=== PATIENT | female | born 1995 | race Caucasian/White ===

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

== ENCOUNTER 2017-01-25 14:29 | Emergency (ER) | payer MEDICAID, OTHER ==
[2017-01-25 15:10] VITALS: BP 126/60
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
== END 2017-01-25 16:13 | disposition home or self-care (01) ==
LOC: MW.ED 14:29
DX: O99.89 Other specified diseases and conditions complicating pregnancy, childbirth and the puerperium (principal); R10.9 Unspecified abdominal pain; Z79.899 Other long term (current) drug therapy; Z3A.17 17 weeks gestation of pregnancy; V49.60XA Unspecified car occupant injured in collision with unspecified motor vehicles in traffic accident, initial encounter; Y92.410 Unspecified street and highway as the place of occurrence of the external cause
CPT/HCPCS: 81001; 99283; 99284

== ENCOUNTER 2017-06-25 20:20 | Inpatient (IN) | payer MEDICAID ==
[2017-06-25] MEDS ORDERED: Sodium Chloride 0.9% 2.5 ML Syringe FLUSH PRN (21:03)
[2017-06-25] MEDS ORDERED: Sodium Chloride 0.9% 10 ML Syringe FLUSH PRN (21:03)
[2017-06-25] MEDS ORDERED: Butorphanol 1 MG/ML SDV IVPUSH ONE (21:05)
[2017-06-25] MEDS ORDERED: Nalbuphine 10 MG/1 ML Vial IVPUSH PRN (22:03)
[2017-06-25] MEDS ORDERED: Methylergonovine 0.2 MG/1 ML Amp IM PRN (22:03)
[2017-06-25] MEDS ORDERED: Tranexamic Acid 1,000 MG in Sodium Chloride 0.9% 100 ML IV PRN (22:03)
[2017-06-25] MEDS ORDERED: Misoprostol 200 MCG Tab PO PRN (22:03)
[2017-06-25] MEDS ORDERED: Lidocaine 1% 50 ML MDV INJECT PRN (22:03)
[2017-06-25] MEDS ORDERED: Carboprost Tromethamine 250 MCG/1 ML Amp IM PRN (22:03)
[2017-06-25] MEDS ORDERED: Butorphanol 1 MG/ML SDV IVPUSH PRN (22:03)
[2017-06-25] MEDS ORDERED: Water For Irrigation,Sterile 1,000 ML Container IRR PRN (22:03)
[2017-06-25] MEDS ORDERED: Ampicillin 2 GM in Sodium Chloride 0.9% 100 ML IV ONE (22:09)
[2017-06-25] MEDS ORDERED: Oxytocin/0.9 % Sodium Chloride 30 UNIT/500 ML BAG IV SCH (22:15)
[2017-06-25] MEDS: Lactated Ringers 1,000 ML IV SCH (22:34)
--- NOTE | 2017-06-26 00:02 | PCM.PREANE ---
Preanesthetic Assessment - Anesthesia/Transfusion/Family Hx Anesthesia History: No Prior Anesthesia Transfusion History: No Prior Transfusion(s) - Review of Systems General: No Symptoms Pulmonary: No Symptoms Cardiovascular: No Symptoms Gastrointestinal: No Symptoms Neurological: No Symptoms Other: Reports: None - Physical Assessment Height: 5 ft 2 in Weight: 69.853 kg ASA Class: 2 Mental Status: Alert & Oriented x3 Dentition: Reports: Normal Dentition Thyro-Mental Finger Breadths: 3 Mouth Opening Finger Breadths: 3 ROM/Head Extension: Full Lungs: Clear to Auscultation, Normal Respiratory Effort Cardiovascular: Regular Rate, Regular Rhythm - Lab Values: Laboratory Last Values WBC 13.84 K/uL (4.0-11.0) H 06/25/17 22:20 RBC 3.66 M/uL (4.30-5.90) L 06/25/17 22:20 Hgb 11.2 g/dL (12.0-16.0) L 06/25/17 22:20 Hct 32.5 % (36.0-46.0) L 06/25/17 22:20 MCV 88.8 fL (80.0-98.0) 06/25/17 22:20 MCH 30.6 pg (27.0-32.0) 06/25/17 22:20 MCHC 34.5 g/dL (31.0-37.0) 06/25/17 22:20 RDW Std Deviation 42.2 fl (28.0-62.0) 06/25/17 22:20 RDW Coeff of Sharron 13 % (11.0-15.0) 06/25/17 22:20 Plt Count 289 K/uL (150-400) 06/25/17 22:20 MPV 9.60 fL (7.40-12.00) 06/25/17 22:20 Nucleated RBC % 0.0 /100WBC 06/25/17 22:20 Nucleated RBCs # 0 K/uL 06/25/17 22:20 Blood Type O POSITIVE 06/25/17 22:20 Antibody Screen NEGATIVE 06/25/17 22:20 - Allergies Allergies/Adverse Reactions: Allergies Allergy/AdvReac Type Severity Reaction Status Date / Time No Known Allergies Allergy Verified 01/25/17 15:10 - Acknowledgements Anesthesia Type Planned: Epidural Pt an Appropriate Candidate for the Planned Anesthesia: Yes Alternatives and Risks of Anesthesia Discussed w Pt/Guardian: Yes Pt/Guardian Understands and Agrees with Anesthesia Plan: Yes PreAnesthesia Questionnaire - Past Health History Medical/Surgical History: Denies Medical/Surgical History HEENT History: Reports: None Cardiovascular History: Reports: None Respiratory History: Reports: None Gastrointestinal History: Reports: GERD Other Gastrointestinal History: colitis Genitourinary History: Reports: None 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: : 1 Para: 0 LMP (Approximate): Musculoskeletal History: Reports: None Neurological History: Reports: None Psychiatric History: Reports: None Endocrine/Metabolic History: Reports: None Hematologic History: Reports: None Immunologic History: Reports: None Oncologic (Cancer) History: Reports: None Dermatologic History: Reports: None - Infectious Disease History Infectious Disease History: Reports: None - Past Surgical History Head Surgeries/Procedures: Reports: None - SUBSTANCE USE Smoking Status *Q: Never Smoker Tobacco Use Within Last Twelve Months: Cigarettes Second Hand Smoke Exposure: No Recreational Drug Use History: No - HOME MEDS Home Medications: Home Meds Pediatric Multivit Comb #25/Fa [Flintstones Multivit Chew Tab] 1 tab PO DAILY [History] - CURRENT (IN HOUSE) MEDS Current Meds: Current Medications Butorphanol Tartrate (Stadol) 1 mg IVPUSH Q1H PRN PRN Reason: Pain Last Admin: 06/25/17 23:02 Dose: 1 mg Carboprost Tromethamine (Hemabate Ds) 250 mcg IM ASDIRECTED PRN PRN Reason: Post Hemorrhage Tranexamic Acid 1,000 mg/ (Sodium Chloride) 110 mls @ 660 mls/hr IV ONETIME PRN PRN Reason: Bleeding Lactated Ringer's (Ringers, Lactated) 1,000 mls @ 150 mls/hr IV ASDIRECTED GALE Last Admin: 06/25/17 22:34 Dose: 150 mls/hr Oxytocin/Sodium Chloride (Oxytocin 30 Unit/500 Ml-Ns) 30 unit in 500 mls @ 250 mls/hr IV TITRATE GALE Ampicillin Sodium 1 gm/ Sodium (Chloride) 50 mls @ 100 mls/hr IV Q4H GALE Lidocaine HCl (Xylocaine 1%) 50 ml INJECT .ONCE PRN PRN Reason: Laceration repair Methylergonovine Maleate (Methergine) 0.2 mg IM ASDIRECTED PRN PRN Reason: Post Hemorrhage Misoprostol (Cytotec) 200 mcg PO .ONCE PRN PRN Reason: Post Hemorrhage Nalbuphine HCl (Nubain) 10 mg IVPUSH Q1H PRN PRN Reason: Pain (severe 7-10) Sodium Chloride (Saline Flush) 10 ml FLUSH ASDIRECTED PRN PRN Reason: Keep Vein Open Sodium Chloride (Saline Flush) 2.5 ml FLUSH ASDIRECTED PRN PRN Reason: Keep Vein Open Sterile Water (Sterile Water For Irrigation) 1,000 ml IRR ASDIRECTED PRN PRN Reason: delivery Discontinued Medications Butorphanol Tartrate (Stadol) 1 mg IVPUSH ONETIME ONE Stop: 06/25/17 21:06 Last Admin: 06/25/17 21:29 Dose: 1 mg Ampicillin Sodium 2 gm/ Sodium (Chloride) 100 mls @ 200 mls/hr IV ONETIME ONE Stop: 06/25/17 22:38 Last Admin: 06/25/17 22:34 Dose: 200 mls/hr
[2017-06-26] MEDS: Lactated Ringers 1,000 ML IV SCH ×2 (00:11→06:44)
[2017-06-26] MEDS: Ampicillin 1 GM in Sodium Chloride 0.9% 50 ML IV SCH ×3 (02:16→10:02)
[2017-06-26] MEDS ORDERED: Terbutaline 1 MG/ML SDV SUBCUT PRN (05:59)
[2017-06-26] MEDS ORDERED: Oxytocin/0.9 % Sodium Chloride 30 UNIT/500 ML BAG IV SCH (06:00)
[2017-06-26] MEDS ORDERED: Acetaminophen 500 MG Tab PO PRN (12:55)
[2017-06-26] MEDS ORDERED: Ibuprofen 800 MG Tab PO PRN (12:55)
[2017-06-26] MEDS ORDERED: Bisacodyl 10 MG Supp RECTAL PRN (12:55)
[2017-06-26] MEDS ORDERED: Methylergonovine 0.2 MG Tab PO PRN (12:55)
[2017-06-26] MEDS ORDERED: Benzocaine/Menthol 20%-0.5% Spray 78 GM Cannister TOP PRN (12:55)
[2017-06-26] MEDS ORDERED: Witch Hazel Medicated Pads 40/Jar TOP PRN (12:55)
[2017-06-26] MEDS ORDERED: Lanolin 100% Cream 7 GM Tube TOP PRN (12:55)
[2017-06-26] MEDS ORDERED: Docusate Sodium 100 MG Cap PO PRN (12:55)
[2017-06-26] MEDS ORDERED: Ibuprofen 400 MG Tab PO PRN (12:55)
--- NOTE | 2017-06-26 13:43 | OR ---
SURGEON: Noemy Almonte M.D. DATE OF PROCEDURE: 06/26/2017 PREOPERATIVE DIAGNOSES: 38 and 2/7 week intrauterine , active spontaneous labor. POSTOPERATIVE DIAGNOSES: 38 and 2/7 week intrauterine , active spontaneous labor. PROCEDURES: 1. Pitocin augmentation of labor. 2. Term spontaneous vaginal delivery. 3. Repair of right labial laceration. RECORDIST CHIEF: SHARAN Patel. ANESTHESIA: Epidural. ESTIMATED BLOOD LOSS: Less than 200 mL. FINDINGS: Live born male, scores 9 and 9, weighing 3380 g, placenta spontaneous, Schultze intact with 3 vessels. Perineum intact. Right labial laceration repair. COMPLICATIONS: None known. DISPOSITION: Mother and baby are in LDRP in good condition. BRIEF HISTORY: This is a 21-year-old female, she is G1, P0, presents in early active labor. She was evaluated on Labor and Delivery on 06/25/2017. She was dismissed to home in the afternoon. She returned in the middle of the night, now 3 to 4 cm dilated, where she had been fingertip before. She was admitted for Labor management. She did receive an epidural for pain control. She had artificial rupture of membranes and she had a category 1 heart tones, although low baseline heart rate throughout labor. She had slow progress beyond 5 cm; therefore, Pitocin augmentation was performed with a maximum Pitocin of 8 milliunits per minute and she progressed to complete. DESCRIPTION OF PROCEDURE: With the patient in dorsal lithotomy position, the patient pushed over 1 hour time period to a 5+ station, at which time the head was delivered in a right occiput anterior position over the perineum with support with subsequent delivery of the 's shoulders and body without any difficulty. The infant was bulb suctioned by nose and mouth and handed to the mother in the presence of the nurse attending delivery. The was a liveborn male, scores 9 and 9, weighing 3380 g. After the cord had ceased to pulsate, it was doubly clamped and cut. A section of cord was retained for drying cord ABGs as well as routine cord blood sampling. The Pitocin was initiated after delivery of the to assist with delivery of the placenta, which was delivered spontaneously. Schultze intact with 3 vessels. Upon inspection of the pelvis and perineum, there were no periurethral, vaginal sidewall, cervical, rectal, or perineal lacerations. There was a right labial laceration, which was reapproximated using subcuticular suture of 3-0 Polysorb. Final sponge, needle, and instrument count were correct. There were no known complications. Mother and baby remained in LDRP in good condition. FRANCISCA COSBY /[id number] JAXON
[2017-06-26] MEDS: Acetaminophen 500 MG Tab PO PRN (17:33)
[2017-06-26] MEDS: oxyCODONE 5 MG Tab PO PRN ×2 (17:34→20:09)
[2017-06-27] MEDS: oxyCODONE 5 MG Tab PO PRN ×3 (00:42→11:48)
[2017-06-27] MEDS: Acetaminophen 500 MG Tab PO PRN ×2 (00:43→06:32)
--- NOTE | 2017-06-27 07:32 | PCM.PNPP ---
<Araseli Gonzales - Last Filed: 06/27/17 07:26> - General Info Date of Service: 06/27/17 Admission Dx/Problem (Free Text): 38/3 , right labia laceration. Subjective Update: Patient is doing well. Attempting to breastfeed, supplementing with formula. Lochia - WNL. Pain is tolerable, although not well controlled. Has not had food yet. Urinating. No bowel movement, but flatus present. Ambulating. Anticipate discharge today. Functional Status: Reports: Ambulating - Review of Systems General: Denies: Fever, Chills HEENT: Denies: Headaches Pulmonary: Denies: Shortness of Breath, Pleuritic Chest Pain Cardiovascular: Denies: Chest Pain, Palpitations, Lightheadedness Gastrointestinal: Reports: Flatus. Denies: Abdominal Pain - General Info Date of Service: 06/27/17 - Patient Data Vital Signs - Most Recent: Last Vital Signs Temp 37.1 C 06/26/17 19:32 Pulse 116 H 06/26/17 19:32 Resp 16 06/26/17 19:32 BP 109/74 06/26/17 19:32 Pulse Ox 98 06/26/17 19:32 Weight - Most Recent: 154 lb Lab Results - Last 24 Hours: Laboratory Results - last 24 hr 06/26/17 06/27/17 Range/Units 12:22 06:11 Hgb 9.1 L (12.0-16.0) g/dL Hct 27.5 L (36.0-46.0) % Cord ABG pH 7.397 H (7.18-7.38) Cord ABG Base Excess -4 (-10--2) Cord VBG pH 7.386 (7.25-7.45) Cord VBG Base Excess -4 (-10--2) Med Orders - Current: Current Medications Acetaminophen (Tylenol Extra Strength) 500 mg PO Q4H PRN PRN Reason: Pain Last Admin: 06/27/17 06:32 Dose: 500 mg Acetaminophen (Tylenol Extra Strength) 1,000 mg PO Q4H PRN PRN Reason: Pain Benzocaine/Menthol (Dermoplast Pain Relief 20%-0.5% [place]) 78 gm TOP ASDIRECTED PRN PRN Reason: Perineal Comfort Measure Last Admin: 06/26/17 14:26 Dose: 1 canister Bisacodyl (Dulcolax) 10 mg RECTAL .ONCE PRN PRN Reason: Constipation Docusate Sodium (Colace) 100 mg PO BID PRN PRN Reason: Constipation Emollient Ointment (Lansinoh Hpa) 0 gm TOP ASDIRECTED PRN PRN Reason: Sore Nipples Ibuprofen (Motrin) 400 mg PO Q4H PRN PRN Reason: Pain Ibuprofen (Motrin) 800 mg PO Q6H PRN PRN Reason: Pain Methylergonovine Maleate (Methergine) 0.2 mg PO ASDIRECTED PRN PRN Reason: excessive vaginal bleeding Oxycodone HCl (Oxycodone) 5 mg PO Q2H PRN PRN Reason: Pain Last Admin: 06/27/17 06:31 Dose: 5 mg Witch Kassandra (Tucks) 1 pad TOP ASDIRECTED PRN PRN Reason: comfort care Last Admin: 06/26/17 20:11 Dose: 1 pad Discontinued Medications Butorphanol Tartrate (Stadol) 1 mg IVPUSH ONETIME ONE Stop: 06/25/17 21:06 Last Admin: 06/25/17 21:29 Dose: 1 mg Butorphanol Tartrate (Stadol) 1 mg IVPUSH Q1H PRN PRN Reason: Pain Last Admin: 06/25/17 23:02 Dose: 1 mg Carboprost Tromethamine (Hemabate Ds) 250 mcg IM ASDIRECTED PRN PRN Reason: Post Hemorrhage Tranexamic Acid 1,000 mg/ (Sodium Chloride) 110 mls @ 660 mls/hr IV ONETIME PRN PRN Reason: Bleeding Ampicillin Sodium 2 gm/ Sodium (Chloride) 100 mls @ 200 mls/hr IV ONETIME ONE Stop: 06/25/17 22:38 Last Admin: 06/25/17 22:34 Dose: 200 mls/hr Lactated Ringer's (Ringers, Lactated) 1,000 mls @ 150 mls/hr IV ASDIRECTED GALE Last Admin: 06/26/17 06:44 Dose: 150 mls/hr Oxytocin/Sodium Chloride (Oxytocin 30 Unit/500 Ml-Ns) 30 unit in 500 mls @ 250 mls/hr IV TITRATE [facility] Ampicillin Sodium 1 gm/ Sodium (Chloride) 50 mls @ 100 mls/hr IV Q4H [facility] Last Admin: 06/26/17 10:02 Dose: 100 mls/hr Fentanyl/Bupivacaine HCl ([id number]-Njwej-Xz 2 Mcg/Ml-0.125%) Confirm Administered Dose 100 mls @ as directed EP .STK-MED ONE Stop: 06/26/17 00:09 Oxytocin/Sodium Chloride (Oxytocin 30 Unit/500 Ml-Ns) 30 unit in 500 mls @ 2 mls/hr IV TITRATE [facility]; Protocol Last Titration: 06/26/17 11:15 Dose: 8 munits/min, 8 mls/hr Fentanyl/Bupivacaine HCl ([id number]-Vqsbg-Pa 2 Mcg/Ml-0.125%) Confirm Administered Dose 100 mls @ as directed EP .STQpyn-MED ONE Stop: 06/26/17 08:52 Lidocaine HCl (Xylocaine 1%) 50 ml INJECT .ONCE PRN PRN Reason: Laceration repair Methylergonovine Maleate (Methergine) 0.2 mg IM ASDIRECTED PRN PRN Reason: Post Hemorrhage Misoprostol (Cytotec) 200 mcg PO .ONCE PRN PRN Reason: Post Hemorrhage Nalbuphine HCl (Nubain) 10 mg IVPUSH Q1H PRN PRN Reason: Pain (severe 7-10) Sodium Chloride (Saline Flush) 10 ml FLUSH ASDIRECTED PRN PRN Reason: Keep Vein Open Sodium Chloride (Saline Flush) 2.5 ml FLUSH ASDIRECTED PRN PRN Reason: Keep Vein Open Sterile Water (Sterile Water For Irrigation) 1,000 ml IRR ASDIRECTED PRN PRN Reason: delivery Terbutaline Sulfate (Brethine) 0.25 mg SUBCUT ASDIRECTED PRN PRN Reason: Tacysystole - Interaction Disposition, : [place] in Room with Family Infant Interaction: Holding Infant Infant Feeding: Attempted ; Nursed Fair/Poor Other Infant Feeding: Supplementing with formula. - Recovery Exam Fundal Tone: Firm Fundal Level: 2 Fingerbreadths Below Umbilicus Fundal Placement: Midline Lochia Amount: Small Lochia Color: Rubra/Red Episiotomy/Laceration: Approximated Bladder Status: Voiding Urinary Elimination: Voided - Exam General: Alert, Oriented, No Acute Distress Lungs: Clear to Auscultation, Normal Respiratory Effort Cardiovascular: Regular Rate, Regular Rhythm GI/Abdominal Exam: Soft, Non-Tender Extremities: No Pedal Edema Skin: Warm, Dry Psy/Mental Status: Alert - Assessment Assessment:: PPD #1, 38/3 . Stable. Anticipate discharge. - Plan Plan:: Reviewed discharge instructions. Continue PNV while . Pelvic rest for 6 weeks. OTC tylenol/ibuprofen for pain. Call if fever greater than 101 or bleeding through a heavy pad in an hour. Follow-up appointment in 6 weeks. <Marcia Faulkner - Last Filed: 06/27/17 08:58> - Patient Data Vital Signs - Most Recent: Last Vital Signs Temp 37.1 C 06/26/17 19:32 Pulse 116 H 06/26/17 19:32 Resp 16 06/26/17 19:32 BP 109/74 06/26/17 19:32 Pulse Ox 98 06/26/17 19:32 Lab Results - Last 24 Hours: Laboratory Results - last 24 hr 06/26/17 06/27/17 Range/Units 12:22 06:11 Hgb 9.1 L (12.0-16.0) g/dL Hct 27.5 L (36.0-46.0) % Cord ABG pH 7.397 H (7.18-7.38) Cord ABG Base Excess -4 (-10--2) Cord VBG pH 7.386 (7.25-7.45) Cord VBG Base Excess -4 (-10--2) Med Orders - Current: Current Medications Acetaminophen (Tylenol Extra Strength) 500 mg PO Q4H PRN PRN Reason: Pain Last Admin: 06/27/17 06:32 Dose: 500 mg Acetaminophen (Tylenol Extra Strength) 1,000 mg PO Q4H PRN PRN Reason: Pain Benzocaine/Menthol (Dermoplast Pain Relief 20%-0.5% [place]) 78 gm TOP ASDIRECTED PRN PRN Reason: Perineal Comfort Measure Last Admin: 06/26/17 14:26 Dose: 1 canister Bisacodyl (Dulcolax) 10 mg RECTAL .ONCE PRN PRN Reason: Constipation Docusate Sodium (Colace) 100 mg PO BID PRN PRN Reason: Constipation Emollient Ointment (Lansinoh Hpa) 0 gm TOP ASDIRECTED PRN PRN Reason: Sore Nipples Ibuprofen (Motrin) 400 mg PO Q4H PRN PRN Reason: Pain Ibuprofen (Motrin) 800 mg PO Q6H PRN PRN Reason: Pain Methylergonovine Maleate (Methergine) 0.2 mg PO ASDIRECTED PRN PRN Reason: excessive vaginal bleeding Oxycodone HCl (Oxycodone) 5 mg PO Q2H PRN PRN Reason: Pain Last Admin: 06/27/17 06:31 Dose: 5 mg Witch Kassandra (Tucks) 1 pad TOP ASDIRECTED PRN PRN Reason: comfort care Last Admin: 06/26/17 20:11 Dose: 1 pad Discontinued Medications Butorphanol Tartrate (Stadol) 1 mg IVPUSH ONETIME ONE Stop: 06/25/17 21:06 Last Admin: 06/25/17 21:29 Dose: 1 mg Butorphanol Tartrate (Stadol) 1 mg IVPUSH Q1H PRN PRN Reason: Pain Last Admin: 06/25/17 23:02 Dose: 1 mg Carboprost Tromethamine (Hemabate Ds) 250 mcg IM ASDIRECTED PRN PRN Reason: Post Hemorrhage Tranexamic Acid 1,000 mg/ (Sodium Chloride) 110 mls @ 660 mls/hr IV ONETIME PRN PRN Reason: Bleeding Ampicillin Sodium 2 gm/ Sodium (Chloride) 100 mls @ 200 mls/hr IV ONETIME ONE Stop: 06/25/17 22:38 Last Admin: 06/25/17 22:34 Dose: 200 mls/hr Lactated Ringer's (Ringers, Lactated) 1,000 mls @ 150 mls/hr IV ASDIRECTED GALE Last Admin: 06/26/17 06:44 Dose: 150 mls/hr Oxytocin/Sodium Chloride (Oxytocin 30 Unit/500 Ml-Ns) 30 unit in 500 mls @ 250 mls/hr IV TITRATE [facility] Ampicillin Sodium 1 gm/ Sodium (Chloride) 50 mls @ 100 mls/hr IV Q4H [facility] Last Admin: 06/26/17 10:02 Dose: 100 mls/hr Fentanyl/Bupivacaine HCl ([id number]-Zrcpo-En 2 Mcg/Ml-0.125%) Confirm Administered Dose 100 mls @ as directed EP .STK-MED ONE Stop: 06/26/17 00:09 Oxytocin/Sodium Chloride (Oxytocin 30 Unit/500 Ml-Ns) 30 unit in 500 mls @ 2 mls/hr IV TITRATE [facility]; Protocol Last Titration: 06/26/17 11:15 Dose: 8 munits/min, 8 mls/hr Fentanyl/Bupivacaine HCl ([id number]-Ullve-Ca 2 Mcg/Ml-0.125%) Confirm Administered Dose 100 mls @ as directed EP .STK-MED ONE Stop: 06/26/17 08:52 Lidocaine HCl (Xylocaine 1%) 50 ml INJECT .ONCE PRN PRN Reason: Laceration repair Methylergonovine Maleate (Methergine) 0.2 mg IM ASDIRECTED PRN PRN Reason: Post Hemorrhage Misoprostol (Cytotec) 200 mcg PO .ONCE PRN PRN Reason: Post Hemorrhage Nalbuphine HCl (Nubain) 10 mg IVPUSH Q1H PRN PRN Reason: Pain (severe 7-10) Sodium Chloride (Saline Flush) 10 ml FLUSH ASDIRECTED PRN PRN Reason: Keep Vein Open Sodium Chloride (Saline Flush) 2.5 ml FLUSH ASDIRECTED PRN PRN Reason: Keep Vein Open Sterile Water (Sterile Water For Irrigation) 1,000 ml IRR ASDIRECTED PRN PRN Reason: delivery Terbutaline Sulfate (Brethine) 0.25 mg SUBCUT ASDIRECTED PRN PRN Reason: Tacysystole - Problem List & Annotations (1) Vaginal delivery SNOMED Code(s): 521687960 Code(s): O80 - ENCOUNTER FOR FULL-TERM UNCOMPLICATED DELIVERY Status: Acute Current Visit: Yes - Problem List Review Problem List Initiated/Reviewed/Updated: Yes - Plan Plan:: Agree with above. Patient would be discharged today. Discharge instructions reviewed with patient and partner
--- NOTE | 2017-06-27 09:29 | PCM48HPAN ---
Post Anesthesia Note - EVALUATION WITHIN 48HRS OF ANESTHETIC Vital Signs in Normal Range: Yes Patient Participated in Evaluation: Yes Respiratory Function Stable: Yes Airway Patent: Yes Cardiovascular Function Stable: Yes Hydration Status Stable: Yes Pain Control Satisfactory: Yes Nausea and Vomiting Control Satisfactory: Yes Mental Status Recovered: Yes Resp Rate: 16
[2017-06-27 10:55] VITALS: BP 109/61
== END 2017-06-27 14:15 | disposition home or self-care (01) | DRG 775 ==
LOC: MW.OBCHECK 20:20 → MW.OB 20:23 → MW.OBCHECK 06-26 12:22 → MW.OB 06-26 12:22 → OBSVTOIN 06-26 12:22 → MW.OB 06-26 17:00
PROVIDERS: ADMIT Obstetrics & Gynecology; ATTEND Obstetrics & Gynecology
PROC: 10E0XZZ Delivery of Products of Conception, External Approach (ICD-10-PCS; principal; 2017-06-26)
PROC: 10907ZC Drainage of Amniotic Fluid, Therapeutic from Products of Conception, Via Natural or Artificial Opening (ICD-10-PCS; 2017-06-26)
PROC: 0HQ9XZZ Repair Perineum Skin, External Approach (ICD-10-PCS; 2017-06-26)
DX: O70.0 First degree perineal laceration during delivery (principal); Z3A.38 38 weeks gestation of pregnancy; Z37.0 Single live birth
CPT/HCPCS: 36415; 51702; 59025; 59409; 82803; 85014; 85018; 85027; 86850; 86900; 86901; A9270-GY; J0290; J0595; J2590; J7030; J7050; J7120

== ENCOUNTER 2017-08-10 11:43 | Emergency (ER) | payer MEDICAID ==
[2017-08-10] MEDS ORDERED: Sodium Chloride 0.9% 10 ML Syringe FLUSH PRN (12:11)
[2017-08-10] MEDS ORDERED: Sodium Chloride 0.9% 2.5 ML Syringe FLUSH PRN (12:11)
[2017-08-10] MEDS ORDERED: Ketorolac 30 MG/ML SDV IVPUSH ONE (12:12)
[2017-08-10] MEDS ORDERED: Sodium Chloride 0.9% 1,000 ML IV ONE (12:12)
--- NOTE | 2017-08-10 12:16 | EDM.PDOC ---
ED HPI GENERAL MEDICAL PROBLEM - General Chief Complaint: Fever Stated Complaint: UNK Time Seen by Provider: 08/10/17 12:08 - History of Present Illness INITIAL COMMENTS - FREE TEXT/NARRATIVE: HISTORY AND PHYSICAL: History of present illness: Patient is a 21-year-old female 6 weeks with vaginal delivery who presents with multiple body aches and fever she denies cough urinary symptoms she states she's had vaginal bleeding that she was told would be normal per [facility] she has a scheduled appointment on the for follow-up. Review of systems: As per history of present illness and below otherwise all systems reviewed and negative. Past medical history: As per history of present illness and as reviewed below otherwise noncontributory. Surgical history: As per history of present illness and as reviewed below otherwise noncontributory. Social history: No reported history of drug or alcohol abuse. Family history: As per history of present illness and as reviewed below otherwise noncontributory. Physical exam: HEENT: Atraumatic, normocephalic, pupils reactive, negative for conjunctival pallor or scleral icterus, mucous membranes moist, throat clear, neck supple, nontender, trachea midline. Lungs: Clear to auscultation, breath sounds equal bilaterally, chest nontender. Heart: S1S2, regular, negative for clicks, rubs, or JVD. Abdomen: Soft, nondistended, nontender. Negative for masses or hepatosplenomegaly. Negative for costovertebral tenderness. Pelvis: Stable nontender. Genitourinary: Deferred. Rectal: Deferred. Extremities: Atraumatic, negative for cords or calf pain. Neurovascular unremarkable. Neuro: Awake, alert, oriented. Cranial nerves II through XII unremarkable. Cerebellum unremarkable. Motor and sensory unremarkable throughout. Exam nonfocal. Diagnostics: CBC CMP rapid strep UA quantitative beta chest x-ray urine culture blood culture lactic acid Therapeutics: Saline 1 L bolus Toradol 30 mg IV Impression: #1 polymyalgia #2 history of fever #3 observation 6 weeks status post # 4medical screening exam Definitive disposition and diagnosis as appropriate pending reevaluation and review of above. lower abd and flank Pain Score (Numeric/FACES): 9 - Related Data Allergies Allergy/AdvReac Type Severity Reaction Status Date / Time No Known Allergies Allergy Verified 08/10/17 11:58 Home Meds: Home Meds . 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: Musculoskeletal History: Reports: None Neurological History: Reports: None Psychiatric History: Reports: None Endocrine/Metabolic History: Reports: None Hematologic History: Reports: None Immunologic History: Reports: None Oncologic (Cancer) History: Reports: None Dermatologic History: Reports: None - Infectious Disease History Infectious Disease History: Reports: None - Past Surgical History Head Surgeries/Procedures: Reports: None Social & Family History - Family History Family Medical History: Noncontributory Cardiac: Reports: High Cholesterol, Hypertension : Reports: Renal Disease/Insufficiency, Other (See Below) Other Family History: ' possible kidney failure' OBGYN: Reports: Musculoskeletal: Reports: Osteoporosis Psychiatric: Reports: Depression Endocrine/Metabolic: Reports: Diabetes, type II Hematologic: Reports: Anemia Oncologic: Reports: Other (See Below) Other Oncologic Family History: unknown cancer - Tobacco Use Smoking Status *Q: Light Tobacco Smoker Years of Tobacco use: 1 Packs/Tins Daily: 0.2 - Caffeine Use Caffeine Use: Reports: Tea - Recreational Drug Use Recreational Drug Use: No ED ROS GENERAL - Review of Systems Review Of Systems: ROS reveals no pertinent complaints other than HPI. ED EXAM, GENERAL - Physical Exam Exam: See Below (See dictation) Course - Vital Signs Text/Narrative:: Patient emerged from courses been unremarkable she is resting comfortably and has no complaints she feels much better after the IV fluid I discussed with her of results of her tests including her CT scan this point she requests discharge home and will follow-up regarding reevaluation for the elevated white blood cell count she's return for fever chills nausea vomiting or any other signs or symptoms as discussed. Last Recorded V/S: Last Vital Signs Temp 37.9 C 08/10/17 11:58 Pulse 109 H 08/10/17 11:58 Resp 18 08/10/17 11:58 BP 113/59 L 08/10/17 11:58 Pulse Ox 98 08/10/17 11:58 - Orders/Labs/Meds Orders: Active Orders 24 hr Category Date Time Status CULTURE BLOOD [BC] Stat Lab 08/10/17 12:23 Received CULTURE BLOOD [BC] Stat Lab 08/10/17 12:44 Received CULTURE URINE [RM] Stat Lab 08/10/17 12:24 Ordered Sodium Chloride 0.9% [Saline Flush] Med 08/10/17 12:11 Active 10 ml FLUSH ASDIRECTED PRN Sodium Chloride 0.9% [Saline Flush] Med 08/10/17 12:11 Active 2.5 ml FLUSH ASDIRECTED PRN Blood Culture x2 Reflex Set [OM.PC] Stat Oth 08/10/17 12:12 Ordered Saline Lock Insert [OM.PC] Stat Oth 08/10/17 12:11 Ordered Medication Orders Sodium Chloride (Saline Flush) 10 ml FLUSH ASDIRECTED PRN PRN Reason: Keep Vein Open Last Admin: 08/10/17 12:23 Dose: 10 ml Sodium Chloride (Saline Flush) 2.5 ml FLUSH ASDIRECTED PRN PRN Reason: Keep Vein Open Last Admin: 08/10/17 12:22 Dose: 2.5 ml Labs: Laboratory Tests 08/10/17 08/10/17 08/10/17 Range/Units 12:03 12:23 12:23 WBC 17.94 H (4.0-11.0) K/uL RBC 4.03 L (4.30-5.90) M/uL Hgb 11.9 L (12.0-16.0) g/dL Hct 35.2 L (36.0-46.0) % MCV 87.3 (80.0-98.0) fL MCH 29.5 (27.0-32.0) pg MCHC 33.8 (31.0-37.0) g/dL RDW Std Deviation 42.3 (28.0-62.0) fl RDW Coeff of Sharron 13 (11.0-15.0) % Plt Count 254 (150-400) K/uL MPV 9.20 (7.40-12.00) fL Neut % (Auto) 81.6 H (48.0-80.0) % Lymph % (Auto) 5.8 L (16.0-40.0) % [place] % (Auto) 12.4 (0.0-15.0) % Eos % (Auto) 0.1 (0.0-7.0) % Baso % (Auto) 0.1 (0.0-1.5) % Neut # (Auto) 14.7 H (1.4-5.7) K/uL Lymph # (Auto) 1.0 (0.6-2.4) K/uL [place] # (Auto) 2.2 H (0.0-0.8) K/uL Eos # (Auto) 0.0 (0.0-0.7) K/uL Baso # (Auto) 0.0 (0.0-0.1) K/uL Nucleated RBC % 0.0 /100WBC Nucleated RBCs # 0 K/uL Lactate (0.20-2.00) mmol/L Sodium 134 L (136-145) mmol/L Potassium 3.5 (3.5-5.1) mmol/L Chloride 100 (98-107) mmol/L Carbon Dioxide 24.5 (21.0-32.0) mmol/L BUN 11 (7.0-18.0) mg/dL Creatinine 1.1 H (0.6-1.0) mg/dL Est Cr Clr Drug Dosing 65.06 mL/min Estimated GFR (MDRD) > 60.0 ml/min Glucose 104 (74-106) mg/dL Calcium 8.6 (8.5-10.1) mg/dL Total Bilirubin 0.9 (0.2-1.0) mg/dL AST 20 (15-37) IU/L ALT 31 (14-63) IU/L Alkaline Phosphatase 106 (46-116) U/L Total Protein 7.2 (6.4-8.2) g/dL Albumin 3.4 (3.4-5.0) g/dL Globulin 3.8 H (2.0-3.5) g/dL Albumin/Globulin Ratio 0.9 L (1.3-2.8) HCG, Quant mIU/mL Urine Color YELLOW Urine Appearance CLEAR Urine pH 6.0 (5.0-8.0) Ur Specific [place] 1.015 (1.001-1.035) Urine Protein 100 (NEGATIVE) mg/dL Urine Glucose (UA) NEGATIVE (NEGATIVE) mg/dL Urine Ketones NEGATIVE (NEGATIVE) mg/dL Urine Occult Blood LARGE H (NEGATIVE) Urine Nitrite NEGATIVE (NEGATIVE) Urine Bilirubin NEGATIVE (NEGATIVE) Urine Urobilinogen 0.2 (<2.0) EU/dL Ur Leukocyte Esterase SMALL (NEGATIVE) Urine RBC TOO NUMBEROUS TO CT H (0-2/HPF) Urine WBC 2-3 (0-5/HPF) Ur Epithelial Cells RARE (NONE-FEW) Urine Bacteria RARE (NEGATIVE) Urinalysis Comment 08/10/17 08/10/17 Range/Units 12:23 12:23 WBC (4.0-11.0) K/uL RBC (4.30-5.90) M/uL Hgb (12.0-16.0) g/dL Hct (36.0-46.0) % MCV (80.0-98.0) fL MCH (27.0-32.0) pg MCHC (31.0-37.0) g/dL RDW Std Deviation (28.0-62.0) fl RDW Coeff of Sharron (11.0-15.0) % Plt Count (150-400) K/uL MPV (7.40-12.00) fL Neut % (Auto) (48.0-80.0) % Lymph % (Auto) (16.0-40.0) % [place] % (Auto) (0.0-15.0) % Eos % (Auto) (0.0-7.0) % Baso % (Auto) (0.0-1.5) % Neut # (Auto) (1.4-5.7) K/uL Lymph # (Auto) (0.6-2.4) K/uL [place] # (Auto) (0.0-0.8) K/uL Eos # (Auto) (0.0-0.7) K/uL Baso # (Auto) (0.0-0.1) K/uL Nucleated RBC % /100WBC Nucleated RBCs # K/uL Lactate 0.7 (0.20-2.00) mmol/L Sodium (136-145) mmol/L Potassium (3.5-5.1) mmol/L Chloride (98-107) mmol/L Carbon Dioxide (21.0-32.0) mmol/L BUN (7.0-18.0) mg/dL Creatinine (0.6-1.0) mg/dL Est Cr Clr Drug Dosing mL/min Estimated GFR (MDRD) ml/min Glucose (74-106) mg/dL Calcium (8.5-10.1) mg/dL Total Bilirubin (0.2-1.0) mg/dL AST (15-37) IU/L ALT (14-63) IU/L Alkaline Phosphatase (46-116) U/L Total Protein (6.4-8.2) g/dL Albumin (3.4-5.0) g/dL Globulin (2.0-3.5) g/dL Albumin/Globulin Ratio (1.3-2.8) HCG, Quant < 1.0 mIU/mL Urine Color Urine Appearance Urine pH (5.0-8.0) Ur Specific [place] (1.001-1.035) Urine Protein (NEGATIVE) mg/dL Urine Glucose (UA) (NEGATIVE) mg/dL Urine Ketones (NEGATIVE) mg/dL Urine Occult Blood (NEGATIVE) Urine Nitrite (NEGATIVE) Urine Bilirubin (NEGATIVE) Urine Urobilinogen (<2.0) EU/dL Ur Leukocyte Esterase (NEGATIVE) Urine RBC (0-2/HPF) Urine WBC (0-5/HPF) Ur Epithelial Cells (NONE-FEW) Urine Bacteria (NEGATIVE) Urinalysis Comment Meds: Medications Generic Name Dose Route Start Last Admin Trade Name Freq PRN Reason Stop Dose Admin Sodium Chloride 10 ml 08/10/17 12:11 08/10/17 12:23 Saline Flush FLUSH 10 ml ASDIRECTED PRN Administration Keep Vein Open Sodium Chloride 2.5 ml 08/10/17 12:11 08/10/17 12:22 Saline Flush FLUSH 2.5 ml ASDIRECTED PRN Administration Keep Vein Open Discontinued Medications Generic Name Dose Route Start Last Admin Trade Name Freq PRN Reason Stop Dose Admin Sodium Chloride 1,000 mls @ 999 mls/hr 08/10/17 12:12 08/10/17 12:22 Normal Saline IV 08/10/17 13:12 999 mls/hr STAT ONE Administration Iopamidol 80 ml 08/10/17 13:34 08/10/17 13:40 Isovue Multipack-370 (76%) IVPUSH 08/10/17 13:35 80 ml ONETIME STA Administration Ketorolac Tromethamine 30 mg 08/10/17 12:12 08/10/17 12:22 Toradol IVPUSH 08/10/17 12:13 30 mg ONETIME ONE Administration Departure - Departure Time of Disposition: 14:26 Disposition: Home, Self-Care 01 Condition: Good Clinical Impression: Encounter for medical screening examination, Leukocytosis - Discharge Information Referrals: Rc Raman MD [Primary Care Provider] - Forms: ED Department Discharge Additional Instructions: The following information is given to patients seen in the emergency department who are being discharged to home. This information is to outline your options for follow-up care. We provide all patients seen in our emergency department with a follow-up referral. The need for follow-up, as well as the timing and circumstances, are variable depending upon the specifics of your emergency department visit. If you don't have a primary care physician on staff, we will provide you with a referral. We always advise you to contact your personal physician following an emergency department visit to inform them of the circumstance of the visit and for follow-up with them and/or the need for any referrals to a consulting specialist. The emergency department will also refer you to a specialist when appropriate. This referral assures that you have the opportunity for followup care with a specialist. All of these measure are taken in an effort to provide you with optimal care, which includes your followup. Under all circumstances we always encourage you to contact your private physician who remains a resource for coordinating your care. When calling for followup care, please make the office aware that this follow-up is from your recent emergency room visit. If for any reason you are refused follow-up, please contact the [facility] emergency department at and asked to speak to the emergency department charge nurse. Follow-up primary medical doctor 24-48 hours push fluids Motrin/Tylenol as directed and return as needed as discussed[] - My Orders Last 24 Hours: My Active Orders 08/10/17 12:11 Sodium Chloride 0.9% [Saline Flush] 10 ml FLUSH ASDIRECTED PRN Sodium Chloride 0.9% [Saline Flush] 2.5 ml FLUSH ASDIRECTED PRN Saline Lock Insert [OM.PC] Stat 08/10/17 12:12 Blood Culture x2 Reflex Set [OM.PC] Stat 08/10/17 12:23 CULTURE BLOOD [BC] Stat 08/10/17 12:24 CULTURE URINE [RM] Stat 08/10/17 12:44 CULTURE BLOOD [BC] Stat - Assessment/Plan Last 24 Hours: My Active Orders 08/10/17 12:11 Sodium Chloride 0.9% [Saline Flush] 10 ml FLUSH ASDIRECTED PRN Sodium Chloride 0.9% [Saline Flush] 2.5 ml FLUSH ASDIRECTED PRN Saline Lock Insert [OM.PC] Stat 08/10/17 12:12 Blood Culture x2 Reflex Set [OM.PC] Stat 08/10/17 12:23 CULTURE BLOOD [BC] Stat 08/10/17 12:24 CULTURE URINE [RM] Stat 08/10/17 12:44 CULTURE BLOOD [BC] Stat
[2017-08-10 13:19] LABS: CHLORIDE,CL 100 mmol/L (98-107); SODIUM,NA 134 mmol/L (136-145)
[2017-08-10] MEDS ORDERED: Iopamidol 755 MG/ML 500 ML Multipack Bottle IVPUSH STA (13:34)
--- NOTE | 2017-08-10 13:35 | CR ---
Single AP portable chest Clinical history: Chest pain and shortness of breath Comparison: None recent. Findings: The costophrenic angles are clear. The cardiac mediastinum is normal and the lungs are ghassan r. Given the history of chest pain there is no evidence of pneumothorax. Impression: Normal chest
--- NOTE | 2017-08-10 14:01 | CT ---
CT scan of the abdomen and pelvis Clinical history: Pyuria and back pain Comparison: None. Findings: Multiple computed images were acquired with intravenous Isovue 370/80 mL The lung bases are clear. Lower heart appears normal. The liver spleen and pancreas are normal. The kidneys demonstrate no focal abnormalities. There is very mild pelvocaliectasis of no consequence . Scanning through the lower abdomen/retroperitoneum shows no abnormal findings into the pelvis. No u reteral calculus. Her graft scans of the pelvis show no specific adenopathy or mass. Uterus is in sit u along with normal-appearing adnexa Skeletal structures appear normal.. Impression: No significant renal pathology. No other significant abnormalities
[2017-08-10 14:53] VITALS: BP 107/51
== END 2017-08-10 14:53 | disposition home or self-care (01) ==
LOC: MW.ED 11:43
DX: Z39.2 Encounter for routine postpartum follow-up (principal); D72.829 Elevated white blood cell count, unspecified; M35.3 Polymyalgia rheumatica; R50.9 Fever, unspecified; F17.210 Nicotine dependence, cigarettes, uncomplicated
CPT/HCPCS: 36415; 71045; 74177; 80053; 81001; 83605; 84702; 85025; 87040; 87086; 87088; 87186; 96361; 96374; 99284; J1885; J7040; Q9967

== ENCOUNTER 2017-08-10 19:42 | Emergency (ER) | payer MEDICAID ==
[2017-08-10 21:47] VITALS: BP 112/58
== END 2017-08-10 20:20 | disposition left against medical advice (07) ==
LOC: MW.ED 19:42
DX: Z53.21 Procedure and treatment not carried out due to patient leaving prior to being seen by health care provider (principal)

== ENCOUNTER 2019-03-03 13:40 | Emergency (ER) | payer MEDICAID ==
[2019-03-03 14:04] VITALS: BP 131/79; PULSE 80
[2019-03-03] MEDS ORDERED: oxyCODONE 5 MG Tab PO ONE (14:48)
[2019-03-03 14:54] LABS: BLOOD UREA NITROGEN,BUN 7 mg/dL (7.0-18.0); CHLORIDE,CL 102 mmol/L (98-107); GLUCOSE RANDOM 86 mg/dL (74-106); LIPASE 56 U/L (73-393); POTASSIUM,K 3.7 mmol/L (3.5-5.1); SODIUM,NA 137 mmol/L (136-145)
--- NOTE | 2019-03-03 15:46 | CT ---
Indication: Right flank pain. Technique: Multiple contiguous axial images were obtained from the lung bases through the symphysis pubis without intravenous contrast enhancement. Please note that all CT scans at this facility use dose modulation, iterative reconstruction, and/or weight-based dosing when appropriate to reduce radiation dose to as low as reasonably achievable. Comparison: None Findings: The left lung base is clear. In the right lung base, an opacity is identified measuring 2.4 cm in size. This is best seen on image number 18, series 201. This may simply represent round infiltrate. Follow-up is recommended to ensure complete resolution. The unenhanced liver, spleen, pancreas, adrenals, and kidneys are normal. The gallbladder is distended. No hydronephrosis is identified. No hydroureter is identified. No renal/ureteral calculi identified. In the pelvis, the uterus is enlarged. The urinary bladder is normal. The small and large bowel are normal in caliber. The appendix is identified. A small appendicolith is identified within the appendix. The appendix measures a maximum of 7 mm in size which is at the upper limits of normal to mildly enlarged. No free air or free fluid is identified within the abdomen or pelvis. No fat stranding is identified in the right lower quadrant. The aorta is normal in caliber. No lytic or blastic lesions of the spine are identified. Impression: 1. A small appendicolith is identified. The appendix is at the upper limits of normal in size to mildly enlarged, measuring 7 mm. An early appendicitis cannot be excluded. Opacity identified in the right costophrenic sulcus, most likely representing a round pneumonia. Follow-up is recommended to ensure complete resolution. Distention of the gallbladder. No hydronephrosis or hydroureter. No renal/ureteral calculi Please note that all CT scans at this facility use dose modulation, iterative reconstruction, and/or weight-based dosing when appropriate to reduce radiation dose to as low as reasonably achievable. Dictated by Cecilia Burris MD @ Mar 03 2019 3:36PM Signed by Dr. Cecilia Burris @ Mar 03 2019 3:44PM
--- NOTE | 2019-03-03 16:03 | EDM.PDOC ---
ED HPI GENERAL MEDICAL PROBLEM - General Chief Complaint: Abdominal Pain Stated Complaint: PAIN ON LFT SIDE Time Seen by Provider: 03/03/19 16:01 - History of Present Illness INITIAL COMMENTS - FREE TEXT/NARRATIVE: HPI 23-year-old female presents for evaluation of several days of poorly characterized sharp right upper quadrant pain that is worsened by deep inspiration, palpation, is accompanied by mild anorexia, no similar prior symptoms, denies fevers, chills, chest pain, dysuria, urinary frequency, flank pain, history of DVT, PE, calf tenderness, swelling, recent immobilization, recent surgery, exogenous estrogen use, or hemoptysis. M/S/F/SocHx notable for: please see HPI; remainder reviewed with patient and in chart. ROS: Negative constitutional, eye, cardiovascular, pulmonary, GI, , MSK, skin , neurologic, psychiatric, endocrine unless noted in the HPI. Exam HR 80, RR 18, BP 131/79, T 36.2C, SaO2 97% on room air. Gen: pleasant, nontoxic-appearing, resting comfortably. HEENT: NC, AT, PEERL, EOMI. Resp: Clear to auscultation bilaterally, normal work of breathing. Card: Regular rate and rhythm with no murmurs rubs or gallops, extremities warm and well perfused. GI: ND, no RUQ TTP, no epigastric TTP, remainder of abdomen non-tender to palpation, negative Barrera's sign, no rebound or guarding. POCUS with negative sonographic Barrera sign, no pericholecystic fluid, no anterior gallbladder wall thickening, no visualized stones or sludge. : No CVA tenderness to percussion bilaterally. No suprapubic tenderness to palpation. MSK: No visible deformities, strength and tone WNL. Skin: Normal color with no visible lesions. Neuro: alert and oriented 3, no facial asymmetry, vision and hearing WNL. Psych: Mood and affect appropriate. Labs / Imaging (pertinent): WBC 7.88, HB 11.2, sodium 137, potassium 3.7, AST 12, ALT 19, alkaline phosphatase 132, lipase 56. D-dimer 0.35 UA - negative nitrate, moderate occult blood, moderate leukocyte esterase, few bacteria, few epithelial cells, negative hCG. CT abdomen/pelvis: a small appendicolith is identified. The appendix is at the upper limits of normal in size to mildly large, measuring 7 mm. An early appendicitis cannot be excluded. MDM Previous chart, nursing note, and vitals reviewed. A: 23-year-old female presents for evaluation of several days of poorly characterized sharp right upper quadrant pain that is worsened by deep inspiration, palpation, is accompanied by mild anorexia, no similar prior symptoms, denies fevers, chills, chest pain, dysuria, urinary frequency, flank pain, history of DVT, PE, calf tenderness, swelling, recent immobilization, recent surgery, exogenous estrogen use, or hemoptysis. DDx: Biliary disease (cholecystitis, cholelithiasis, choledocholithiasis, biliary colic), pancreatitis, appendicitis, ureterolithiasis, peptic ulcer disease, GERD, ACS, PE. Evaluation: * Cardiothoracic - strongly doubt an acute cardiopulmonary disease process given clear breath sounds bilaterally, absence of identifiable risk factors, low pretest probability for PE with a negative d-dimer, and the absence of pathology on the lung bases on the CT abdomen pelvis. * Intrabdominal - liver enzymes WNL, no clear features of acute biliary pathology on examination, [id number] ultrasound unremarkable, CT abdomen pelvis notable for an appendicolith in the appendix and the size being upper limits of normal, however there are no further suggestive features (absence of right lower quadrant tenderness palpation, absence of nausea, given provoking or relieving factors, absence of leukocytosis, and overall clinical trajectory) , as such further ED evaluation is not presently indicated. Lipase WNL. * Genitourinary - imaging without evidence of ureterolithiasis, UA concerning for infection, no clear evidence of systemic symptoms, however given right- sided pain complicated urinary tract infection cannot be fully excluded. Patient was prescribed cephalexin 500 mg QID 10 days and instructed to follow- up with her PCP tomorrow for repeat evaluation. HCG negative. 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 Patient elected to remain in the ED for imaging. Impression: UTI, abdominal pain. (please reference below for remainder of encounter information) PERC negative (age >= 50 - N, HR >= 100 - N, SaO2 < 95 - N, prior DVT - N, trauma or surgery in last 4 weeks - N, hemoptysis - N, exogenous estrogen - N, unilateral leg swelling - N). Left Upper Quadrant Abdomen Pain Score (Numeric/FACES): 10 - Related Data Allergies Allergy/AdvReac Type Severity Reaction Status Date / Time No Known Allergies Allergy Verified 03/03/19 13:58 Home Meds: Home Meds Cephalexin [Keflex] 500 mg PO QID #40 capsule 03/03/19 [Rx] Past Medical History - Past Health History Medical/Surgical History: Denies Medical/Surgical History HEENT History: Reports: None Cardiovascular History: Reports: None Respiratory History: Reports: None Gastrointestinal History: Reports: GERD Other Gastrointestinal History: colitis Genitourinary History: Reports: None MED ADMIN History: Reports: Musculoskeletal History: Reports: None Neurological History: Reports: None Psychiatric History: Reports: None Endocrine/Metabolic History: Reports: None Hematologic History: Reports: None Immunologic History: Reports: None Oncologic (Cancer) History: Reports: None Dermatologic History: Reports: None - Infectious Disease History Infectious Disease History: Reports: None - Past Surgical History Head Surgeries/Procedures: Reports: None Social & Family History - Family History Family Medical History: Noncontributory Cardiac: Reports: High Cholesterol, Hypertension : Reports: Renal Disease/Insufficiency, Other (See Below) Other Family History: ' possible kidney failure' OBGYN: Reports: Musculoskeletal: Reports: Osteoporosis Psychiatric: Reports: Depression Endocrine/Metabolic: Reports: Diabetes, type II Hematologic: Reports: Anemia Oncologic: Reports: Other (See Below) Other Oncologic Family History: unknown cancer - Tobacco Use Smoking Status *Q: Never Smoker Second Hand Smoke Exposure: No - Caffeine Use Caffeine Use: Reports: None - Recreational Drug Use Recreational Drug Use: No ED ROS GENERAL - Review of Systems Review Of Systems: See Below ED EXAM, GENERAL - Physical Exam Exam: See Below Course - Vital Signs Last Recorded V/S: Last Vital Signs Temp 36.2 C 03/03/19 13:59 Pulse 80 03/03/19 13:59 Resp 18 03/03/19 13:59 BP 131/79 03/03/19 13:59 Pulse Ox 97 03/03/19 13:59 - Orders/Labs/Meds Labs: Laboratory Tests 03/03/19 03/03/19 03/03/19 Range/Units 14:28 14:28 14:28 WBC 7.88 (4.0-11.0) K/uL RBC 4.13 L (4.30-5.90) M/uL Hgb 11.2 L (12.0-16.0) g/dL Hct 35.3 L (36.0-46.0) % MCV 85.5 (80.0-98.0) fL MCH 27.1 (27.0-32.0) pg MCHC 31.7 (31.0-37.0) g/dL RDW Std Deviation 43.6 (28.0-62.0) fl RDW Coeff of Sharron 14 (11.0-15.0) % Plt Count 366 (150-400) K/uL MPV 9.10 (7.40-12.00) fL Neut % (Auto) 67.1 (48.0-80.0) % Lymph % (Auto) 19.5 (16.0-40.0) % Kent % (Auto) 12.2 (0.0-15.0) % Eos % (Auto) 0.9 (0.0-7.0) % Baso % (Auto) 0.3 (0.0-1.5) % Neut # (Auto) 5.3 (1.4-5.7) K/uL Lymph # (Auto) 1.5 (0.6-2.4) K/uL Kent # (Auto) 1.0 H (0.0-0.8) K/uL Eos # (Auto) 0.1 (0.0-0.7) K/uL Baso # (Auto) 0.0 (0.0-0.1) K/uL Nucleated RBC % 0.0 /100WBC Nucleated RBCs # 0 K/uL D-Dimer, Quantitative 0.35 (0.0-0.50) mg/L FEU Sodium 137 (136-145) mmol/L Potassium 3.7 (3.5-5.1) mmol/L Chloride 102 (98-107) mmol/L Carbon Dioxide 26.0 (21.0-32.0) mmol/L BUN 7 (7.0-18.0) mg/dL Creatinine 0.8 (0.6-1.0) mg/dL Est Cr Clr Drug Dosing 87.98 mL/min Estimated GFR (MDRD) > 60.0 ml/min Glucose 86 (74-106) mg/dL Calcium 8.8 (8.5-10.1) mg/dL Total Bilirubin 0.5 (0.2-1.0) mg/dL AST 12 L (15-37) IU/L ALT 19 (14-63) IU/L Alkaline Phosphatase 132 H (46-116) U/L Total Protein 7.2 (6.4-8.2) g/dL Albumin 3.4 (3.4-5.0) g/dL Globulin 3.8 (2.6-4.0) g/dL Albumin/Globulin Ratio 0.9 (0.9-1.6) Lipase 56 L (73-393) U/L Urine Color Urine Appearance Urine pH (5.0-8.0) Ur Specific Georgiana (1.001-1.035) Urine Protein (NEGATIVE) mg/dL Urine Glucose (UA) (NEGATIVE) mg/dL Urine Ketones (NEGATIVE) mg/dL Urine Occult Blood (NEGATIVE) Urine Nitrite (NEGATIVE) Urine Bilirubin (NEGATIVE) Urine Urobilinogen (<2.0) EU/dL Ur Leukocyte Esterase (NEGATIVE) Urine RBC (0-2/HPF) Urine WBC (0-5/HPF) Ur Epithelial Cells (NONE-FEW) Urine Bacteria (NEGATIVE) Urine HCG, Qual (NEGATIVE) 03/03/19 03/03/19 Range/Units 14:31 14:31 WBC (4.0-11.0) K/uL RBC (4.30-5.90) M/uL Hgb (12.0-16.0) g/dL Hct (36.0-46.0) % MCV (80.0-98.0) fL MCH (27.0-32.0) pg MCHC (31.0-37.0) g/dL RDW Std Deviation (28.0-62.0) fl RDW Coeff of Sharron (11.0-15.0) % Plt Count (150-400) K/uL MPV (7.40-12.00) fL Neut % (Auto) (48.0-80.0) % Lymph % (Auto) (16.0-40.0) % Kent % (Auto) (0.0-15.0) % Eos % (Auto) (0.0-7.0) % Baso % (Auto) (0.0-1.5) % Neut # (Auto) (1.4-5.7) K/uL Lymph # (Auto) (0.6-2.4) K/uL Kent # (Auto) (0.0-0.8) K/uL Eos # (Auto) (0.0-0.7) K/uL Baso # (Auto) (0.0-0.1) K/uL Nucleated RBC % /100WBC Nucleated RBCs # K/uL D-Dimer, Quantitative (0.0-0.50) mg/L FEU Sodium (136-145) mmol/L Potassium (3.5-5.1) mmol/L Chloride (98-107) mmol/L Carbon Dioxide (21.0-32.0) mmol/L BUN (7.0-18.0) mg/dL Creatinine (0.6-1.0) mg/dL Est Cr Clr Drug Dosing mL/min Estimated GFR (MDRD) ml/min Glucose (74-106) mg/dL Calcium (8.5-10.1) mg/dL Total Bilirubin (0.2-1.0) mg/dL AST (15-37) IU/L ALT (14-63) IU/L Alkaline Phosphatase (46-116) U/L Total Protein (6.4-8.2) g/dL Albumin (3.4-5.0) g/dL Globulin (2.6-4.0) g/dL Albumin/Globulin Ratio (0.9-1.6) Lipase (73-393) U/L Urine Color YELLOW Urine Appearance SLT CLOUDY Urine pH 6.0 (5.0-8.0) Ur Specific Georgiana <= 1.005 (1.001-1.035) Urine Protein NEGATIVE (NEGATIVE) mg/dL Urine Glucose (UA) NEGATIVE (NEGATIVE) mg/dL Urine Ketones NEGATIVE (NEGATIVE) mg/dL Urine Occult Blood MODERATE H (NEGATIVE) Urine Nitrite NEGATIVE (NEGATIVE) Urine Bilirubin NEGATIVE (NEGATIVE) Urine Urobilinogen 0.2 (<2.0) EU/dL Ur Leukocyte Esterase MODERATE H (NEGATIVE) Urine RBC 0-3 (0-2/HPF) Urine WBC 5-7 (0-5/HPF) Ur Epithelial Cells FEW (NONE-FEW) Urine Bacteria FEW (NEGATIVE) Urine HCG, Qual NEGATIVE (NEGATIVE) Meds: Medications Discontinued Medications Generic Name Dose Route Start Last Admin Trade Name Freq PRN Reason Stop Dose Admin Oxycodone HCl 5 mg 03/03/19 14:48 03/03/19 15:01 Oxycodone PO 03/03/19 14:49 5 mg ONETIME ONE Administration Departure - Departure Time of Disposition: 16:02 Disposition: Home, Self-Care 01 Clinical Impression: Abdominal pain, UTI (urinary tract infection) - Discharge Information Prescriptions: Cephalexin [Keflex] 500 mg PO QID #40 capsule Referrals: PCP,None [Primary Care Provider] - Additional Instructions: You were in seen in the [facility] Emergency Department for evaluation of abdominal pain. At the time of your evaluation the cause of your symptoms is unclear, however your found have urinary tract infection which may be causing your symptoms. You have been prescribed cephalexin and should follow up with your primary care physician tomorrow for repeat evaluation. There were isolated features on your imagings suggest you may have signs of early appendicitis, however there were no further features on your overall evaluation to suggest that you have appendicitis. As such watchful waiting home is appropriate. Should you have worsening abdominal pain, please return immediately to the emergency department. Please read and follow all of the instructions below. Please follow up with your primary care physician as needed. When calling for follow-up care, please make the office aware that this follow-up is from your recent emergency room visit. If for any reason you are refused follow-up, please contact the [facility] Emergency Department at and asked to speak to the emergency department charge nurse. Your care today was limited to identifying and treating emergent medical problems only. Many people have subtle differences in their test results that require follow up with their outpatient physician(s) to correctly determine if this represents a normal variation or concerning abnormality with respect to your specific health. The care given to you today was limited to identifying and treating emergent medical problems - you need to request a copy of all of your medical records from today's visit and follow up with your outpatient physician(s) to review both today's visit and your overall health. If you have any new symptoms or if you are at all concerned about your health please return immediately to the emergency department. You have an infection of your urinary tract that has spread to your kidneys ( pyelonephritis). * Take the antibiotics as prescribed. * Stay well hydrated (8-12 glasses of water per day). * Take ibuprofen 600 mg every 6-8 hours for relief of pain, you may also take acetaminophen 1000 mg every 6 hours for relief of pain. Please return to the emergency department if you develop any of the following: * Fever above 101.5F or shaking chills. * Worsening flank pain. * Worsening back pain. * Blood in your urine. * Decreased urine output or difficulty urinating. * Nausea or vomiting. * If you are otherwise concerned about your health. If after 3 days of you still have pain on urination or a sensation that you need to urinate frequently please follow up with your primary care physician. Cephalexin (Brand Name: Keflex) Take as directed on the prescription. Take the full prescribed course of medications. SIDE EFFECTS: Diarrhea, dizziness, headache, or stomach upset may occur. If any of these effects persist or worsen, tell your doctor or pharmacist promptly. Tell your doctor immediately if any of these rare but very serious side effects occur: severe stomach/abdominal pain, persistent nausea/vomiting, yellowing eyes /skin, dark urine, change in the amount of urine, new signs of infection (e.g., fever, persistent sore throat), easy bruising/bleeding, mental/mood changes ( e.g., agitation, confusion). This medication may rarely cause a severe intestinal condition (Clostridium difficile-associated diarrhea) due to a resistant bacteria. This condition may occur during treatment or weeks to months after treatment has stopped. Tell your doctor immediately if you develop persistent diarrhea, abdominal or stomach pain/cramping, blood/mucus in your stool. Do not use anti-diarrhea products or narcotic pain medications if you have any of these symptoms because these products may make them worse. Use of this medication for prolonged or repeated periods may result in oral thrush or a new vaginal yeast infection. Contact your doctor if you notice white patches in your mouth, a change in vaginal discharge, or other new symptoms. A very serious allergic reaction to this drug is rare. However, seek immediate medical attention if you notice any symptoms of a serious allergic reaction, including: rash, itching/swelling (especially of the face/tongue/throat), severe dizziness , trouble breathing. This is not a complete list of possible side effects. If you notice other effects not listed above, contact your doctor or pharmacist. PRECAUTIONS: Before taking cephalexin, tell your doctor or pharmacist if you are allergic to it; or to penicillins or other cephalosporins (e.g., cefpodoxime ); or if you have any other allergies. This product may contain inactive ingredients, which can cause allergic reactions or other problems. Talk to your pharmacist for more details. Before using this medication, tell your doctor or pharmacist your medical history, especially of: kidney disease, stomach/ intestinal disease (e.g., colitis). This drug may make you dizzy. Do not drive, use machinery, or do any activity that requires alertness until you are sure you can perform such activities safely. Limit alcoholic beverages. The liquid form of this product may contain sugar. Caution is advised if you have diabetes. Ask your doctor or pharmacist about using this product safely. Kidney function declines as you grow older. This medication is removed by the kidneys. Therefore, older adults may be at greater risk for side effects while using this drug. During , this medication should be used only when clearly needed. Discuss the risks and benefits with your doctor. This medication passes into breast milk. Consult your doctor before breast-feeding. DRUG INTERACTIONS: Your doctor or pharmacist may already be aware of any possible drug interactions and may be monitoring you for them. Do not start, stop, or change the dosage of any medicine before checking with them first. Before using this medication, tell your doctor or pharmacist of all prescription and nonprescription/herbal products you may use, especially of: vaccines that contain live bacteria (e.g., typhoid, BCG), metformin, probenecid. This medication may decrease the effectiveness of combination-type control pills. This can result in . You may need to use an additional form of reliable control while using this medication. Consult your doctor or pharmacist for details. This medication may interfere with certain laboratory tests (including Angel' test, certain urine glucose tests), possibly causing false test results. Make sure laboratory personnel and all your doctors know you use this drug. This document does not contain all possible interactions. Therefore, before using this product, tell your doctor or pharmacist of all the products you use. Keep a list of all your medications with you, and share the list with your doctor and pharmacist. Prescriptions: If you are uninsured or have financial difficulties with filling your prescription(s), you may consider using a free pharmacy discount service such as [employer] ([employer]) or [employer] ([employer]). These services allow you to search for a medication on your phone (or computer) and obtain a coupon that usually has a significant discount from the list willson at a pharmacy. Your physician as well as [facility] does not have a financial relationship with either of these services. You may also wish to speak with your physician to determine if lower cost prescriptions are possible. Obtaining primary care: 1. [facility] provides pediatrics (children), family medicine (children, adults, and some obstetrical care), and internal medicine (adults). Further specialty care is also available. Same day appointments are available. They may be contacted at [phone] and are open Tuesday through Tuesday 8 AM to 5 PM. The [facility] are located at [facility], [address] [place] [address]. 2. [facility] offers family medicine, internal medicine, womens health, and further specialty care. [facility] may be contacted at [phone]. [facility] is located at [address]. [place] [address]. 3. If you have health insurance, please also contact your insurer for a list of accepting providers under your policy, you may contact these providers for further health care. Occupational health: Work related injuries may consider following up with [facility], . Occupational health services are located at [address] [place] [id number] and are open Tuesday through Tuesday from 7: 30 am to 5:00 pm. Obstetrical and Gynecological Care: [facility], , Tuesday through Tuesday 8 AM to 5 PM. [address], [place] [address]. Eyecare: If you have an eye injury you should follow up with your manager professional development or with [facility], at [phone] or [phone] , they are located at [address] [place] [address]. Sepsis Event Note - Evaluation Sepsis Screening Result: No Definite Risk - Focused Exam Vital Signs: Vital Signs Temp Pulse Resp BP Pulse Ox 03/03/19 13:59 36.2 C 80 18 131/79 97 Date Exam was Performed: 03/03/19 Time Exam was Performed: 16:01
== END 2019-03-03 16:13 | disposition home or self-care (01) ==
LOC: MW.ED 13:40
DX: N39.0 Urinary tract infection, site not specified (principal); I10 Essential (primary) hypertension; E11.9 Type 2 diabetes mellitus without complications
CPT/HCPCS: 36415; 74176; 80053; 81001; 81025; 83690; 85025; 85379; 99284; A9270; 99283

== ENCOUNTER 2022-05-24 07:53 | Inpatient (IN) | payer MEDICAID ==
[2022-05-24] MEDS ORDERED: Acetaminophen 500 MG Tab PO ONE (11:17)
[2022-05-24] MEDS ORDERED: Lidocaine 1% 50 ML MDV INJECT PRN (13:19)
[2022-05-24] MEDS ORDERED: Butorphanol 1 MG/ML SDV IVPUSH PRN (13:19)
[2022-05-24] MEDS ORDERED: Methylergonovine 0.2 MG/1 ML Amp IM PRN (13:19)
[2022-05-24] MEDS ORDERED: Carboprost Tromethamine 250 MCG/1 ML Amp IM PRN (13:19)
[2022-05-24] MEDS ORDERED: Misoprostol 200 MCG Tab PO PRN (13:19)
[2022-05-24] MEDS ORDERED: Tranexamic Acid 1,000 MG in Sodium Chloride 0.9% 100 ML IV PRN (13:19)
[2022-05-24] MEDS ORDERED: Water For Irrigation,Sterile 1,000 ML Container IRR PRN (13:19)
[2022-05-24] MEDS ORDERED: Sodium Chloride 0.9% 10 ML Syringe FLUSH PRN (13:25)
[2022-05-24] MEDS ORDERED: Sodium Chloride 0.9% 2.5 ML Syringe FLUSH PRN (13:25)
[2022-05-24] MEDS ORDERED: Sodium Chloride 0.9% 20 ML SDV IV PRN (13:25)
[2022-05-24] MEDS ORDERED: Oxytocin/0.9 % Sodium Chloride 30 UNIT/500 ML BAG IV SCH ×2 (13:30→18:00)
[2022-05-24] MEDS: Lactated Ringers 1,000 ML IV SCH ×2 (14:45→15:44)
[2022-05-24] MEDS ORDERED: Ropivacaine/PF 400 MG/200 ML PCA ONE (15:37)
[2022-05-24] MEDS ORDERED: ePHEDrine 50 MG/ML SDV IVPUSH PRN (15:48)
[2022-05-24] MEDS ORDERED: Phenylephrine HCl 0.5 MG/5 ML AMP IVPUSH PRN (15:48)
[2022-05-24] MEDS ORDERED: Ropivacaine HCl/PF 400 MG in Premix Bag 1 BAG EPIDUR SCH (16:00)
[2022-05-24] MEDS ORDERED: Lanolin 100% Cream 7 GM Tube TOP PRN (19:58)
[2022-05-24] MEDS ORDERED: Acetaminophen 500 MG Tab PO PRN (19:58)
[2022-05-24] MEDS ORDERED: Benzocaine/Menthol 20%-0.5% Spray 78 GM Cannister TOP PRN (19:58)
[2022-05-24] MEDS ORDERED: Ibuprofen 400 MG Tab PO PRN (19:58)
[2022-05-24] MEDS ORDERED: Witch Hazel Medicated Pads 40/Jar TOP PRN (19:58)
[2022-05-24] MEDS ORDERED: oxyCODONE 5 MG Tab PO PRN (19:58)
[2022-05-24] MEDS ORDERED: Bisacodyl 10 MG Supp RECTAL PRN (19:58)
[2022-05-24] MEDS ORDERED: Hydrocortisone 2.5% Crm 30 GM Tube TOP PRN (19:58)
[2022-05-24] MEDS ORDERED: Docusate Sodium 100 MG Cap PO PRN (19:58)
[2022-05-24] MEDS: Ibuprofen 800 MG Tab PO PRN (22:47)
[2022-05-24] MEDS: Acetaminophen 500 MG Tab PO PRN (22:48)
[2022-05-25] MEDS: Acetaminophen 500 MG Tab PO PRN ×3 (04:46→21:04)
[2022-05-25] MEDS: Ibuprofen 800 MG Tab PO PRN ×3 (04:47→21:03)
[2022-05-26] MEDS: Acetaminophen 500 MG Tab PO PRN (08:31)
[2022-05-26] MEDS: Ibuprofen 800 MG Tab PO PRN (10:23)
[2022-05-26 12:19] VITALS: BP 109/62; PULSE 71
== END 2022-05-26 12:35 | disposition home or self-care (01) | DRG 807 ==
LOC: MW.OBCHECK 07:53 → MW.OB 08:00 → MW.OBCHECK 13:18 → MW.OB 13:19 → OBSVTOIN 19:39 → MW.OB 23:24
PROVIDERS: ADMIT Obstetrics & Gynecology; ATTEND Obstetrics & Gynecology
PROC: 10E0XZZ Delivery of Products of Conception, External Approach (ICD-10-PCS; principal; 2022-05-24)
PROC: 0HQ9XZZ Repair Perineum Skin, External Approach (ICD-10-PCS; 2022-05-24)
PROC: 10907ZC Drainage of Amniotic Fluid, Therapeutic from Products of Conception, Via Natural or Artificial Opening (ICD-10-PCS; 2022-05-24)
PROC: 3E0R3BZ Introduction of Anesthetic Agent into Spinal Canal, Percutaneous Approach (ICD-10-PCS; 2022-05-24)
PROC: 00HU33Z Insertion of Infusion Device into Spinal Canal, Percutaneous Approach (ICD-10-PCS; 2022-05-24)
DX: O70.0 First degree perineal laceration during delivery (principal); Z37.0 Single live birth; Z3A.37 37 weeks gestation of pregnancy; Z87.891 Personal history of nicotine dependence
CPT/HCPCS: 36415; 51702; 59025; 59409; 81003; 82803; 85014; 85018; 85027; 86592; 86850; 86900; 86901; A9270-GY; J2590; J2795; J7120; U0002